=== PATIENT | female | born 1990 | race Caucasian/White ===

== ENCOUNTER 2018-05-27 11:44 | Outpatient (REF) | payer SELFPAY ==
--- NOTE | 2018-05-27 11:15 | PAPFT_PTH ---
PATIENT: Melanie Mcdaniels LOC: [facility] U#:[id number] AGE/SX: 27/F ROOM: RE05/27/[address]: REYMUNDO Lazo : 1990 BED: DIS: 05/27/2018 SPEC #: [id number] RECD: 05/27/18 13:03 STATUS: EVE REChristie #: [id number] VEL: 05/27/18 11:[address]: Crista Dolan DEPT: [facility] Cytology RECD BY: Pushpa Aguilar ENTERED: 05/27/18 13:03 SP TYPE: PAPFT JOVANNI DR: Unknown,Unknown Tissues: 1 - CX/ENDOCX FOR PAP SMEARS Procedures: PAP THIN PREP/UVM Screening Comments: [id number]
== END 2018-05-27 12:04 ==
LOC: LBN 11:44
PROVIDERS: Visit Provider Nurse Practitioner Family
DX: Z12.4 Encounter for screening for malignant neoplasm of cervix (principal)
CPT/HCPCS: 88142

== ENCOUNTER 2019-01-12 15:35 | Emergency (ER) | payer MEDICAID, SELFPAY ==
[2019-01-12 15:42] VITALS: BP 120/75; PULSE 76; RESP 14; TEMP 36.7; O2SAT 100
--- NOTE | 2019-01-12 15:51 | ED.GENADUL_ITS ---
Discharge Plan Disposition Patient Disposition: HOME Condition: Improving Discharge Details Chief Complaint: Urinary Clinical Impression: UTI (urinary tract infection) Primary Care Provider: Unknown,Unknown ED Provider: Berry Gottlieb Home Meds and New Rx's Prescriptions: New phenazopyridine [Pyridium] 100 mg tablet 100 mg PO TID 0 Days RF: 0 cephalexin 500 mg capsule 500 mg PO TID 7 Days Qty: 21 RF: 0 Continued clobetasol 0.05 % ointment 1 applic TP .COMPLEX 42 Days Qty: 15 RF: 2 betamethasone, augmented 0.05 % ointment 1 applic TP QHS Qty: 15 RF: 2 Mirena 20 mcg/24 hr (5 years) intrauterine device 1 insert IY ONCE RF: 0 Discharge Instructions Instructions: Urinary Tract Infection in Women (ED) Additional Instructions: Small, frequent sips of fluids to promote hydration. Tylenol if needed for aches, pains. Return if you develop a fever, back pain, or any other acute concerns. Pyridium as needed. Take antibiotics as prescribed. Medical Decision Making 28-year-old female with urinary frequency and urgency over hours time, similar to previous UTI. No recent change to baseline health. She has indwelling Mirena device. Her vital signs are unremarkable. Urinalysis obtained and consistent with acute cystitis. Discussed use of antibiotics and Pyridium as well as indications for return/follow-up. Patient stable for DC to home. HPI General Mode of arrival: ambulatory . Date/Time Provider Initiated Documentation: 01/12/19 15:45 . Limitations to Documentation: no limitations . Information obtained by: patient . History of Present Illness 28 year old F presents to the emergency department with the chief complaint of Urinary urgency, frequency, burning this morning., described as moderate and similar to prior episodes, Quality is described as constant, and is localized to the pelvis and genitals. Patient reports no radiation. Patient started experiencing this hour(s) and it has been constant. No relieving factors improve symptom(s), No exacerbating factors reported . Patient notes denies fever/chills and nausea/vomiting. Patient did receive the following yolanda tments prior to arrival, none Related Data Home Medications Medication Instructions Recorded Confirmed levonorgestrel 20 mcg/24 hours (5 1 insert IY ONCE 05/27/18 01/12/19 yrs) 52 mg intrauterine device betamethasone, augmented 0.05 % 1 applic TP QHS #15 gm 12/30/18 01/12/19 topical ointment clobetasol 0.05 % topical ointment 1 applic TP .COMPLEX 42 Days #15 gm 12/30/18 01/12/19 cephalexin 500 mg PO TID 7 Days #21 cap 01/12/19 phenazopyridine [Pyridium] 100 mg PO TID 0 Days tab 01/12/19 Previous Rx's Medication Instructions Recorded betamethasone, augmented 0.05 % 1 applic TP QHS #15 gm 12/30/18 topical ointment clobetasol 0.05 % topical ointment 1 applic TP .COMPLEX 42 Days #15 gm 12/30/18 cephalexin 500 mg PO TID 7 Days #21 cap 01/12/19 phenazopyridine [Pyridium] 100 mg PO TID 0 Days tab 01/12/19 Allergies Allergy/AdvReac Type Severity Reaction Status Date / Time No Known Drug Allergies Allergy Verified 01/12/19 15:45 General Stated Complaint: Urinary EILEEN: 4 Review of Systems Review of Systems 6 systems reviewed and otherwise negative [facility] Medical History IUD surveillance (Acute) Personal history of cervical dysplasia (Acute 11/06/12) Abnormal Pap smear of cervix (Resolved) Surgical History section (07/02/13) Family History Brother Hypertension Social History Smoking/Tobacco Use Status: Never Alcohol Intake: never Drug use: Never Substance use type: does not use Do you feel safe at home: Yes Do you feel safe in your relationship?: Yes Female Reproductive History Menstrual control method: progestin IUCD (Irregular spotting with IUD) History History 2 Para Hx # Term Pregnancies 2 Multiple births Hx # Pregnancies Ectopic pregnancies AB induced Hx Number of Living Children AB spontaneous Exam Narrative Exam Narrative: GEN: awake, alert, oriented 3. Pleasant, well groomed, interactive. HEAD: Normocephalic, atraumatic EYES: PERRL, EOMI NECK: Full ROM, no CARLOS, no menigismus CHEST/RESP: Nontender, clear to auscultation bilateral, no wheeze/rhonchi/rales CARDIOVASCULAR: RRR, no murmur, rub adrián. 2+ Rad pulse bilateral ABDOMEN: Soft, minimal suprapubic tenderness, no mass. +Bowel sounds EXT: Full ROM, no edema, no rash Neuro: Grossly normal neurologic exam, conversant, interactive. Psych: Speech fluent, thoughts congruent, affect normal Course Vital Signs Temperature 36.7 C 01/12/19 15:42 Pulse 76 01/12/19 15:42 Respiratory Rate 14 01/12/19 15:42 Blood Pressure 120/75 01/12/19 15:42 Pulse Oximetry 100 01/12/19 15:42 Temperature 36.7 C 01/12/19 15:42 Temperature Source Temporal Artery Scan 01/12/19 15:42 Pulse 76 01/12/19 15:42 Respiratory Rate 14 01/12/19 15:42 Respiratory Effort Non-Labored 01/12/19 15:44 Blood Pressure 120/75 01/12/19 15:42 Blood Pressure Position Sitting 01/12/19 15:42 Pulse Oximetry 100 01/12/19 15:42 Oxygen Delivery Method Room Air 01/12/19 15:42 Oxygen Flow Rate 0 01/12/19 15:42 Pain Level 5 01/12/19 15:45
[2019-01-12 15:58] LABS: Bilirubin Negative (Negative); Blood Moderate (Negative); Clarity Sl Cloudy; Glucose Negative (Negative); Ketones Negative (Negative); Leukocyte Esterase Moderate (Negative); Nitrite Negative (Negative); Urobilinogen 0.2 EU/dL (Up TO 0.2); pH 5.5 (5-8)
[2019-01-12 16:06] LABS: Bacteria Many HPF (Negative); C & S Indicated? Yes; Casts Negative LPF (Negative); Crystals Negative HPF (Negative); Epithelial Cells Few HPF (Negative); Mucus Moderate (Negative); WBC >50 HPF (0-5)
[2019-01-12 16:11] VITALS: BP 120/75; PULSE 76; RESP 14; TEMP 36.7; O2SAT 100
== END 2019-01-12 16:13 | disposition home or self-care (01) ==
PROVIDERS: Emergency Provider Emergency Medicine
DX: N39.0 Urinary tract infection, site not specified (principal); B96.20 Unspecified Escherichia coli [E. coli] as the cause of diseases classified elsewhere; Z96.0 Presence of urogenital implants
CPT/HCPCS: 81025; 87077; 99283; 81003; 81015; 87086; 87186

== ENCOUNTER 2019-06-15 11:26 | Outpatient (REF) | payer MEDICAID, SELFPAY ==
--- NOTE | 2019-06-15 11:00 | PAPFT_PTH ---
PATIENT: Melanie Mcdaniels LOC: N U#:[id number] AGE/SX: 28/F ROOM: RE06/15/[address]: REYMUNDO Lazo : 1990 BED: DIS: 06/15/2019 SPEC #: [id number] RECD: 06/15/19 12:56 STATUS: EVE REChristie #: [id number] VEL: 06/15/19 11:[address]: Critsa Dolan DEPT: [facility] Cytology RECD BY: Mariah Miller ENTERED: 06/15/19 12:56 SP TYPE: PAPFT JOVANNI DR: Unknown,Unknown Tissues: 1 - CX/ENDOCX FOR PAP SMEARS Procedures: PAP THIN PREP/UVM Screening Comments: [id number]
== END 2019-06-15 11:46 ==
LOC: LBN 11:26
PROVIDERS: Visit Provider Nurse Practitioner Family
DX: Z12.4 Encounter for screening for malignant neoplasm of cervix (principal)
CPT/HCPCS: 88142

== ENCOUNTER 2019-07-02 10:58 | Outpatient (REF) | payer MEDICAID, SELFPAY | END 2019-07-02 11:18 | LOC: LBN 10:58 | PROVIDERS: Visit Provider Obstetrics & Gynecology Gynecology | DX: L29.2 Pruritus vulvae (principal) | CPT/HCPCS: 87480; 87510; 87660 ==

== ENCOUNTER 2019-08-13 23:36 | Outpatient (REF) | payer MEDICAID, SELFPAY | END 2019-08-13 23:56 | LOC: LBN 23:36 | PROVIDERS: Visit Provider Nurse Practitioner Family | DX: R30.0 Dysuria (principal) | CPT/HCPCS: 87077; 87086; 87186 ==

== ENCOUNTER 2020-03-20 12:16 | Emergency (ER) | payer MEDICAID, SELFPAY ==
[2020-03-20] VITALS (16 sets, daily range): BP systolic 110–155; BP diastolic 73–108; PULSE 57–167; RESP 12–23; TEMP 36.7; O2SAT 98–100
--- NOTE | 2020-03-20 12:39 | ED.GENADUL_ITS ---
Discharge Plan Disposition Patient Disposition: HOME Condition: Stable Discharge Details Chief Complaint: Allergic Clinical Impression: Allergic reaction Primary Care Provider: Zoila Young ED Provider: Jude Garcia Home Meds and New Rx's Prescriptions: No Action prednisone 20 mg tablet 20 mg PO DAILY 5 Days Qty: 5 RF: 0 Discharge Instructions Instructions: General Allergic Reaction (ED) Additional Instructions: Difficult to know exactly what caused your reaction. You may need to see an residential living assistant for a full allergy testing in order to determine the causative agent. Please watch for new or worsening symptoms and return to the ER for any concerns. At this time I see no clear indication to initiate steroid therapy. I recommend using [id number] Benadryl and Pepcid as directed for the next 48 hours. Please watch for new or worsening symptoms and return to the ER for any concerns. Contact your primary care provider tomorrow for prompt outpatient reevaluation. Discharge Data Discharge Date/Time-TO BE ENTERED AT DEPARTURE: 03/20/20 14:25 Medical Decision Making 29-year-old female presents with a red, itchy rash on her face that began this morning upon waking. No new environmental exposures. Did take a single dose of Benadryl around 8:00 this morning. She appears well, nontoxic. No evidence of angioedema. Discussed our options, we will attempt to avoid any steroid use, obtain IV access and give a full dose of Benadryl and Pepcid. Will observe and reassess I was called into the room shortly after the IV Benadryl was pushed. Patient was feeling flushed, anxious, feeling like her heart was racing. On the monitor heart rate was in the 160s. I immediately ordered an EKG and discussed symptoms with patient. She denies any chest pain or shortness of breath. She reports that one time prior at the dentist office she had a very similar reaction when they injected Novocain into her mouth for a dental procedure. By the time the EKG was obtained just minutes after her reaction, heart rate was already back into the 90s and she was feeling significant improvement. It appears as though she had a reaction to the Benadryl. Patient was observed in the ER for total of over 2 hours. Shortly after the Benadryl reaction, she was back to baseline. Subsequent evaluations revealed that the rash on her chest and neck had resolved completely. Each subsequent evaluation the rash on her face improved. The time she was discharged she reports that her ears felt warm however I did not see any obvious erythema to her ears. Face was without rash or swelling. We discussed our options. She did tolerate the oral Benadryl well this morning, I believe her reaction today was because it was an IV push. We discussed taking 25 mg of p.o. Benadryl and Pepcid [id number] as directed. She can certainly try a full dose, 50 mg of Benadryl but if she has any reaction whatsoever I would recommend going back down to the 25 mg. We discussed in length the difference between adverse reaction, side effect, versus a true allergy. Patient is comfortable continuing oral Benadryl. At this time there is no clear indication for steroids or epinephrine. Medical Records Medical records reviewed: Yes I reviewed the patient's medical records. ECG Data Attestation: I personally reviewed and interpreted this ECG (s) as follows: Interpretation: EKG performed at 1251, reviewed and interpreted with Dr. Kyle. Please see her official report. Sinus rhythm, ventricular rate of 96. No STEMI. HPI General Mode of arrival: ambulatory . Date/Time Provider Initiated Documentation: 03/20/20 12:17 . Limitations to Documentation: no limitations . Information obtained by: patient . HPI Narrative: This is a 29-year-old female with no significant past medical history who reports that she went to bed last night and was asymptomatic, around 6:00 this morning she felt as though her face and neck were warm, red, developing hives. She took a single dose of Benadryl, 25 mg at approximately 8 AM with no relief of her symptoms. She denies any swelling of her mouth, tongue, throat. No difficulty breathing, speaking, swallowing. She reports having had a similar more mild reaction in the past but went away on its own. She is unaware of any new environmental exposures, soaps, laundry detergents, etc. No new foods. Unaware of any insect bites or stings. She denies recent illness or trauma. No recent travel. Denies rash elsewhere on her body. Reports that the rash feels warm, tight, itchy, but not painful. Related Data Home Medications Medication Instructions Recorded Confirmed prednisone 20 mg PO DAILY 5 Days #5 tab 03/20/20 Previous Rx's Medication Instructions Recorded prednisone 20 mg PO DAILY 5 Days #5 tab 03/20/20 Allergies Allergy/AdvReac Type Severity Reaction Status Date / Time No Known Drug Allergies Allergy Verified 03/20/20 18:26 diphenhydramine AdvReac Severe Cardiac Unverified 03/20/20 18:26 [From Benadryl Allergy] Dysrythmia General Stated Complaint: Allergic EILEEN: 3 Review of Systems Constitutional Constitutional: Denies fatigue, Denies fever(s) and Denies weakness Eyes Eyes: Denies itchy eyes ENT Ears, Nose, Mouth, and Throat: Denies lip swelling, Denies neck pain, Denies throat swelling and Denies tongue swelling Cardiovascular Cardiovascular: Denies chest pain and Denies dyspnea Respiratory Respiratory: Denies cough, Denies dyspnea and Denies wheezing Gastrointestinal Gastrointestinal: Denies nausea and Denies vomiting Musculoskeletal Musculoskeletal: Denies neck pain, Denies numbness and Denies tingling Integumentary/Breasts Skin/Breast: Reports rash Neurologic Neurologic: Denies numbness, Denies tingling and Denies weakness Endocrine Endocrine: Denies fatigue Allergic/Immunologic Allergic/Immunologic: Denies itchy eyes, Denies lip swelling, Denies throat swelling, Denies tongue swelling and Denies wheezing [facility] Medical History Abnormal Pap smear of cervix (Resolved) Pt had STANFORD II of ectocervix in 2011, and a diagnosis of STANFORD 1 in 2009. Her Paps have gone from Asc-us -> ASC-H, to LSIL, to HSIL. She is s/p Gardisil x 3 in 2007. 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 will manage expectantly. rpt pap 6mo. 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 Patient is topical betamethasone without relief. 06/16/2019 Terazol Rx (patient did not take) 07/02/2019 equivocal wet mount decreased lactobacilli, + cocci. Rx with p.o. metronidazole Surgical History section (07/02/13) elective repeat c/s. Family History Brother Hypertension Social History Smoking/Tobacco Use Status: Never Alcohol Intake: never Drug use: Never Substance use type: does not use Household members: spouse and children Number of Children: 2 current occupation: [employer] in [employer] Sexually active: Yes Do you feel safe at home: Yes Do you feel safe in your relationship?: Yes Female Reproductive History Menstrual control method: progestin IUCD (Irregular spotting with IUD) History History 2 Para Hx # Term Pregnancies 2 Multiple births Hx # Pregnancies Ectopic pregnancies AB induced Hx Number of Living Children AB spontaneous Exam Const General: cooperative, healthy appearing, comfortable and no acute distress Orientation: alert, awake and oriented x3 HENMT Head: normal to inspection, normocephalic and atraumatic Ears: hearing grossly normal bilaterally General nose exam: external nose normal Mouth: moist mucous membranes Throat: posterior oropharynx normal Other: Slightly macular, erythematous, patchy rash across the face, spares the forehead. It does extend down to the anterior aspect of the neck and upper chest. Minimal warmth. No induration, fluctuance, tenderness, drainage. No obvious swelling. Eyes Conjunctivae: conjunctivae normal Sclera: sclerae normal Neck Neck: full ROM, trachea midline, supple and nontender Resp Effort & Inspection: normal respiratory effort and able to speak in complete sentences Auscultation: clear to auscultation bilaterally Cardio Rate: regular rate Rhythm: regular rhythm GI Inspection: normal to inspection Palpation: soft and nontender Back/Spine/Pelvis Back: No erythema Skin Lesions: no lesions Neuro General: patient alert, patient awake, patient oriented x3, moves all extremities and no focal motor deficits Cranial Nerves: CN's II-XI intact bilaterally Cognition: normal cognition Speech: speech normal Gait: normal gait Motor: muscle tone normal throughout Sensory Exam: no sensory deficits noted Extrem General: normal to inspection, full ROM, capillary refill normal, no pedal edema, no calf tenderness and normal gait Psych Appearance: grossly normal Mental Status: mental status grossly normal Course Vital Signs Vital signs: Vital Signs Temperature 36.7 C 03/20/20 12:21 Pulse 80 03/20/20 12:21 Respiratory Rate 14 03/20/20 12:21 Blood Pressure 155/94 H 03/20/20 12:21 Pulse Oximetry 98 08/09/20 12:21 Temperature 36.7 C 03/20/20 12:21 Temperature Source Tympanic 03/20/20 12:21 Pulse 80 03/20/20 12:21 Respiratory Rate 14 03/20/20 12:21 Respiratory Effort Non-Labored 03/20/20 12:22 Blood Pressure 155/94 H 03/20/20 12:21 Blood Pressure Position Sitting 03/20/20 12:21 Pulse Oximetry 98 03/20/20 12:21 Oxygen Delivery Method Room Air 03/20/20 12:21 Oxygen Flow Rate 0 03/20/20 12:21
[2020-03-20] MEDS: Normal Saline 1,000 ML 1000 ML IV (12:44)
[2020-03-20] MEDS: FAMOTIDINE 20 MG/50 ML BAG 200 MG IVPB (12:45)
[2020-03-20] MEDS: diphenhydrAMINE 50 MG/ML VIAL IVP (12:45)
--- NOTE | 2020-03-20 12:45 | RT.EKG_ITS ---
APPROVED REPORT Exam: Resting ECG Patient Location: E HR:96 bpm ECG Measurements Heart Rate 96 AXIS [place] 132 P 72 QRSd 83 QRS 65 QT 360 T -12 QTc 456 Conclusion Sinus rhythm. Less than 1mm ST depression in V3-5.
== END 2020-03-20 14:25 | disposition home or self-care (01) ==
PROVIDERS: Emergency Provider Physician Assistant; PCP Nurse Practitioner
DX: L50.9 Urticaria, unspecified (principal); R00.0 Tachycardia, unspecified; R23.2 Flushing; T45.0X5A Adverse effect of antiallergic and antiemetic drugs, initial encounter
CPT/HCPCS: 36415; 93005; 96361; 96374; 96375; 99283; 99284; 93010; J1200; J7512

== ENCOUNTER 2020-03-20 18:19 | Emergency (ER) | payer MEDICAID, SELFPAY ==
[2020-03-20 18:23] VITALS: BP 120/78; PULSE 80; RESP 16; TEMP 37; O2SAT 100
--- NOTE | 2020-03-20 18:44 | ED.GENADUL_ITS ---
Discharge Plan Disposition Patient Disposition: HOME Condition: Improving Discharge Details Chief Complaint: Allergic Clinical Impression: Allergic reaction Primary Care Provider: Zoila Young ED Provider: Ashley Littlejohn Home Meds and New Rx's Prescriptions: New prednisone 20 mg tablet 20 mg PO DAILY 5 Days Qty: 5 RF: 0 Discharge Instructions Instructions: General Allergic Reaction (ED) Additional Instructions: Take prednisone daily as instructed. Continue taking Benadryl 1 or 2 tablets every 6-8 hours as needed for hives and itching, also take daily Pepcid as pre viously instructed. Return to the ER for any worsening shortness of breath, facial swelling or any concerns. Follow up with primary care provider in 3-5 days. Return to ED sooner if any worsening or concerns. Increase oral fluids. Referrals: Zoila Young [Primary Care Provider] - Medical Decision Making 29-year-old female presents the ER with increased itching and redness noted to her periorbital space jawline bilateral nose and anterior neck. She was seen here earlier today for the same unknown allergic reaction to unknown substance. She reports leaving around 1400 and going home taking a nap and woke up with the redness and swelling no bit worse did not take Benadryl or any other medications prior to arrival. Will give patient p.o. 25 mg Benadryl here and 60 mg of prednisone prior to discharge. She has no uvula swelling, no stridor no wheezes noted bilaterally to auscultation.. Patient received 60 mg prednisone and 25 mg Benadryl p.o. in department which improved her symptoms. Prescription written for prednisone zone 20 mg a day for the next 7 days. Discussed to continue taking Benadryl and Pepcid as previously instructed. Patient verbalized understanding. The time of this dictation patient was hemodynamically stable, had no increased shortness of breath, wheezes or trouble breathing or swallowing. Erythema had improved and itching has improved. HPI General Mode of arrival: ambulatory . Date/Time Provider Initiated Documentation: 03/20/20 18:24 . Limitations to Documentation: no limitations . Information obtained by: patient . HPI Narrative: 29-year-old female presents the ER with increased itching and redness noted to her periorbital space jawline bilateral nose and anterior neck. She was seen here earlier today for the same unknown allergic reaction to unknown substance. She reports leaving around 1400 and going home taking a nap and woke up with the redness and swelling no bit worse did not take Benadryl or any other medications prior to arrival. Will give patient p.o. 25 mg Benadryl here and 60 mg of prednisone prior to discharge. She has no uvula swelling, no stridor no wheezes noted bilaterally to auscultation.. Related Data Home Medications Medication Instructions Recorded Confirmed prednisone 20 mg PO DAILY 5 Days #5 tab 03/20/20 Previous Rx's Medication Instructions Recorded prednisone 20 mg PO DAILY 5 Days #5 tab 03/20/20 Allergies Allergy/AdvReac Type Severity Reaction Status Date / Time No Known Drug Allergies Allergy Verified 03/20/20 18:26 diphenhydramine AdvReac Severe Cardiac Unverified 03/20/20 18:26 [From Benadryl Allergy] Dysrythmia General Stated Complaint: Allergic EILEEN: 3 Review of Systems Narrative: Constitutional: Negative for weight loss, alert and oriented, well groomed, normal body habitus, appears comfortable. HEENT: Denies trauma, headaches, blurry vision, nasal discharge, sore throat, trouble swallowing. Chest: Denies chest pain, palpitations, irregular rhythm, hypertension. Respiratory: Denies Shortness of breath, cough, hemoptysis. GI: Denies abdominal pain, nausea, vomiting, diarrhea, constipation. : Denies dysuria, hematuria, flank pain, rectal bleeding. Neuro: Denies dizziness, blurry vision, weakness, syncope, headache or facial numbness. Hematologic: Denies easy bruising, intolerance to heat or cold, hair loss. [facility] Medical History Abnormal Pap smear of cervix (Resolved) Pt had STANFORD II of ectocervix in 2011, and a diagnosis of STANFORD 1 in 2009. Her Paps have gone from Asc-us -> ASC-H, to LSIL, to HSIL. She is s/p Gardisil x 3 in 2007. 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 will manage expectantly. rpt pap 6mo. 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 Patient is topical betamethasone without relief. 06/16/2019 Terazol Rx (patient did not take) 07/02/2019 equivocal wet mount decreased lactobacilli, + cocci. Rx with p.o. metronidazole Surgical History section (07/02/13) elective repeat c/s. Family History Brother Hypertension Social History Smoking/Tobacco Use Status: Never Alcohol Intake: never Drug use: Never Substance use type: does not use Household members: spouse and children Number of Children: 2 current occupation: [employer] in [employer] Sexually active: Yes Do you feel safe at home: Yes Do you feel safe in your relationship?: Yes Female Reproductive History Menstrual control method: progestin IUCD (Irregular spotting with IUD) History History 2 Para Hx # Term Pregnancies 2 Multiple births Hx # Pregnancies Ectopic pregnancies AB induced Hx Number of Living Children AB spontaneous Exam Narrative Exam Narrative: Constitutional: Alert and oriented x3. Appears stated age. Normal body habitus. Head: Normocephalic, no trauma. Eyes: Pupils PERRLA, Red reflex noted, EOM's intact. Eyelids symmetrical without lesions, discharge, or swelling. ENT: Bilateral TM's WNL, External ear normal to inspection, no mastoid TTP, swelling, or erythema, Nasal turbinates WNL, no nasal discharge. Normal dentit ion, Posterior pharynx WNL, no exudate. Chest: RRR, Normal S1, S2, distal pulses intact. Resp: Lungs clear to auscultation bilaterally, no wheezes, rales, or rhonchi. Musculoskeletal: Normal gait, 5/5 strength to all four extremities. Skin: No suspicious rashes or lesions. Capillary refill less than 2 sec. Neurologic: Cranial nerves II-XII intact. Alert and oriented x 3. DTR's intact. Hematologic/Lymphatic: No ecchymosis, no lymphadenopathy. Course Vital Signs Vital signs: Vital Signs Temperature 37 C 03/20/20 18:23 Pulse 80 03/20/20 18:23 Respiratory Rate 16 03/20/20 18:23 Blood Pressure 120/78 03/20/20 18:23 Pulse Oximetry 100 03/20/20 18:23 Temperature 37 C 03/20/20 18:23 Temperature Source Skin 03/20/20 18:23 Pulse 80 03/20/20 18:23 Respiratory Rate 16 03/20/20 18:23 Respiratory Effort Non-Labored 03/20/20 18:23 Blood Pressure 120/78 03/20/20 18:23 Blood Pressure Position Sitting 03/20/20 18:23 Pulse Oximetry 100 03/20/20 18:23 Oxygen Delivery Method Room Air 03/20/20 18:23 Oxygen Flow Rate 0 03/20/20 18:23 Pain Level 0 03/20/20 18:23
[2020-03-20] MEDS: diphenhydrAMINE 25 MG CAP PO (18:55)
[2020-03-20] MEDS: predniSONE 20 MG TAB 60 MG PO (18:56)
[2020-03-20 20:20] VITALS: BP 108/71; PULSE 62; RESP 15; TEMP 36.8; O2SAT 99
== END 2020-03-20 20:35 | disposition home or self-care (01) ==
LOC: ER 20:33
PROVIDERS: Emergency Provider Registered Nurse Emergency; PCP Nurse Practitioner
DX: L53.8 Other specified erythematous conditions (principal); L29.8 Other pruritus; T78.40XA Allergy, unspecified, initial encounter
CPT/HCPCS: J7512

== ENCOUNTER 2020-10-17 08:14 | Emergency (ER) | payer MEDICAID, SELFPAY ==
[2020-10-17 08:18] VITALS: BP 138/89; PULSE 92; RESP 18; TEMP 36.4; O2SAT 100
--- NOTE | 2020-10-17 08:26 | ED.GENADUL_ITS ---
Discharge Plan Disposition Patient Disposition: HOME Condition: Stable Discharge Details Clinical Impression: Urticaria Primary Care Provider: Zoila Young ED Provider: Ashley Littlejohn Home Meds and New Rx's Prescriptions: New prednisone 20 mg tablet 20 mg PO DAILY 5 Days Qty: 5 RF: 0 Continued diphenhydramine HCl 50 mg Capsule 50 mg PO Q6H PRNRF: 0 famotidine [Pepcid] 40 mg Tablet 40 mg PO DAILY PRNRF: 0 epinephrine 0.3 mg/0.3 mL Auto-Injector 0.3 mg IM ONCE PRNRF: 0 Discharge Instructions Instructions: Urticaria (ED) Additional Instructions: Follow up with primary care provider in 3-5 days. Return to ED sooner if any worsening or concerns. Increase oral fluids. Take Benadryl 1 or 2 tablets every 6-8 hours as needed for hives or itching, take the prednisone once daily for the next 5 days as prescribed. You may continue taking the Pepcid daily for the next 5 days as well. Please return to the ED immediately as soon as possible for any worsening rash spreading into your eyelid, trouble breathing, throat discomfort, cough or any concerns. Referrals: Zolia Young [Primary Care Provider] - Medical Decision Making 29-year-old female presents to the ED with chief complaint of facial hives and allergic reaction which she reports began yesterday. She has no known source, denies any new medications new facial lotion or anything of that sort. She s tates that she had an episode similar to this approximately 1 year ago and was seen by an it programmer analyst was not able to locate the source of the reaction. She has no complaints of trouble breathing, no throat discomfort, no wheezing no cough. She does have small amount of hives noted in your urticaria to her lower lip, right side of his face down into the right side of her neck and her ears. She denies any nausea vomiting diarrhea no fever. Denies taking any medications prior to arrival this morning. She does state that she is able to take Benadryl by mouth. She does have heart racing with IV Benadryl. At this time 40 mg of Pepcid p.o., 50 mg of Benadryl p.o., and 40 mg of prednisone ordered. 0925: Patient reevaluation, hives and erythema have decreased after medications discussed home care and follow-up with patient who verbalizes understanding. At this time I will prescribe her prednisone for approximately 5 days. She states that she does have [id number] Pepcid at home, will discuss taking Benadryl 1 or 2 tablets every 6-8 hours. Discussed strict return instructions including worsening rash, swelling to her face or any trouble breathing to return to the ED, verbalized understanding. Patient remained hemodynamically stable throughout stay, this text was generated using Support[employer]ee[employer] system, please disregard any oddities of phrase or misspellings. HPI General Mode of arrival: ambulatory . Date/Time Provider Initiated Documentation: 10/17/20 08:16 . Limitations to Documentation: no limitations . Information obtained by: patient . HPI Narrative: 29-year-old female presents to the ED with chief complaint of facial hives and allergic reaction which she reports began yesterday. She has no known source, denies any new medications ne w facial lotion or anything of that sort. She states that she had an episode similar to this approximately 1 year ago and was seen by an it programmer analyst was not able to locate the source of the reaction. She has no complaints of trouble breathing, no throat discomfort, no wheezing no cough. She does have small amount of hives noted in your urticaria to her lower lip, right side of his face down into the right side of her neck and her ears. She denies any nausea vomiting diarrhea no fever. Denies taking any medications prior to arrival this morning. She does state that she is able to take Benadryl by mouth. She does have heart racing with IV Benadryl. Related Data Home Medications Medication Instructions Recorded Confirmed diphenhydramine HCl 50 mg PO Q6H PRN 10/17/20 10/17/20 epinephrine 0.3 mg IM ONCE PRN 10/17/20 10/17/20 famotidine [Pepcid] 40 mg PO DAILY PRN 10/17/20 10/17/20 prednisone 20 mg PO DAILY 5 Days #5 tab 10/17/20 Previous Rx's Medication Instructions Recorded prednisone 20 mg PO DAILY 5 Days #5 tab 10/17/20 Allergies Allergy/AdvReac Type Severity Reaction Status Date / Time No Known Drug Allergies Allergy Verified 03/20/20 18:26 diphenhydramine AdvReac Severe Cardiac Unverified 03/20/20 18:26 [From Benadryl Allergy] Dysrythmia General Stated Complaint: Allergic EILEEN: 3 Review of Systems Narrative: Constitutional: Negative for weight loss, alert and oriented, well groomed, normal body habitus, appears comfortable. HEENT: Denies trauma, headaches, blurry vision, nasal discharge, sore throat, trouble swallowing. Chest: Denies chest pain, palpitations, irregular rhythm, hypertension. Respiratory: Denies Shortness of breath, cough, hemoptysis. GI: Denies abdominal pain, nausea, vomiting, diarrhea, constipation. Skin: Reports rash raised positive pruritus to right side of her face and neck and bilateral earlobes times approximately 24 hours. Neuro: Denies dizziness, blurry vision, weakness, syncope, headache or facial numbness. Hematologic: Denies easy bruising, intolerance to heat or cold, hair loss. [facility] Medical History (Updated 10/17/20 @ 09:32 by Ashley Littlejohn) Abnormal Pap smear of cervix Pt had STANFORD II of ectocervix in 2011, and a diagnosis of STANFORD 1 in 2009. Her Paps have gone from Asc-us -> ASC-H, to LSIL, to HSIL. She is s/p Gardisil x 3 in 2007. 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 will manage expectantly. rpt pap 6mo. IUD surveillance Personal history of cervical dysplasia (11/06/12) Vulvar pruritus 12/2018 onset. Patient is topical betamethasone without relief. 06/16/2019 Terazol Rx (patient did not take) 07/02/2019 equivocal wet mount decreased lactobacilli, + cocci. Rx with p.o. metronidazole Surgical History section (07/02/13) elective repeat c/s. Family History Brother Hypertension Social History Smoking/Tobacco Use Status: Never Smoking risk assessment performed?: Yes Alcohol Intake: never Drug use: Never Substance use type: does not use Household members: spouse and children Number of Children: 2 current occupation: [employer] in [employer] Sexually active: Yes Do you feel safe at home: Yes Do you feel safe in your relationship?: Yes Female Reproductive History Menstrual control method: progestin IUCD (Irregular spotting with IUD) History History 2 Para Hx # Term Pregnancies 2 Multiple births Hx # Pregnancies Ectopic pregnancies AB induced Hx Number of Living Children AB spontaneous Exam Narrative Exam Narrative: Constitutional: Alert and oriented x3. Appears stated age. Normal body habitus. Speaking in full sentences. Voice is clear. Head: Normocephalic, no trauma. Eyes: Pupils PERRLA, Red reflex noted, EOM's intact. Eyelids symmetrical without lesions, discharge, or swelling. ENT: Bilateral TM's WNL, External ear normal to inspection, no mastoid TTP, swelling, or erythema, Nasal turbinates WNL, no nasal discharge. Normal dentition, Posterior pharynx WNL, no exudate. Uvula midline. Chest: RRR, Normal S1, S2, distal pulses intact. Resp: Lungs clear to auscultation bilaterally, no wheezes, rales, or rhonchi. No stridor Musculoskeletal: Normal gait, 5/5 strength to all four extremities. Skin: Capillary refill less than 2 sec.. Raised urticarial type rash noted to the right side of her face and neck with well demarcated borders, small amount of swelling and redness noted to her lower lip and bilateral earlobes. No rash noted at this time to her chest back abdomen or extremities. Neurologic: Cranial nerves II-XII intact. Alert and oriented x 3. DTR's intact. Hematologic/Lymphatic: No ecchymosis, no lymphadenopathy. Course Vital Signs Vital signs: Vital Signs Temperature 36.4 C L 10/17/20 08:18 Pulse 92 H 10/17/20 08:18 Respiratory Rate 18 10/17/20 08:18 Blood Pressure 138/89 10/17/20 08:18 Pulse Oximetry 100 10/17/20 08:18 Temperature 36.4 C L 10/17/20 08:18 Temperature Source Skin 10/17/20 08:18 Pulse 92 H 10/17/20 08:18 Respiratory Rate 18 10/17/20 08:18 Blood Pressure 138/89 10/17/20 08:18 Blood Pressure Position Sitting 10/17/20 08:18 Pulse Oximetry 100 10/17/20 08:18 Oxygen Delivery Method Room Air 10/17/20 08:18 Oxygen Flow Rate 0 10/17/20 08:18 Pain Level 0 10/17/20 08:18
[2020-10-17] MEDS: predniSONE 20 MG TAB 40 MG PO (08:32)
[2020-10-17] MEDS: diphenhydrAMINE 25 MG CAP 50 MG PO (08:32)
[2020-10-17] MEDS: Famotidine 20 MG TAB 40 MG PO (08:32)
[2020-10-17 09:07] VITALS: BP 118/74; PULSE 72; RESP 18; TEMP 37; O2SAT 100
== END 2020-10-17 09:40 | disposition home or self-care (01) ==
PROVIDERS: Emergency Provider Registered Nurse Emergency; PCP Nurse Practitioner
DX: L50.0 Allergic urticaria (principal)
CPT/HCPCS: 99283; J7512

== ENCOUNTER 2022-10-07 13:53 | Emergency (ER) | payer MEDICAID, SELFPAY ==
[2022-10-07 14:08] VITALS: BP 117/87; PULSE 68; RESP 18; TEMP 36.8; O2SAT 100
--- NOTE | 2022-10-07 14:08 | ED.GENADUL_ITS ---
Discharge Plan Disposition Patient Disposition: Home Condition: Improving Discharge Details Clinical Impression: UTI (urinary tract infection) Primary Care Provider: Zoila Young ED Provider: Berry Gottlieb Home Meds and New Rx's Prescriptions: New cephalexin 500 mg capsule 500 mg PO TID 7 Days Qty: 21 0RF Discharge Instructions Instructions: Urinary Tract Infection in Women (ED) Additional Instructions: May continue Azo for relief of symptoms. May use Tylenol as needed for aches or pains. Take antibiotics as prescribed until finished. Every 6 hours today and then 3 times daily starting tomorrow Small, frequent sips of fluids to maintain hydration. Return to the emergency department for any acute concerns. Medical Decision Making This is a 31-year-old female presents with 1 day of urinary urgency, frequency and burning. Similar to previous urinary tract infections. She has otherwise been well and denies other illness. Exam is reassuring. Urinalysis is consistent with acute cystitis. Will place patient on Keflex and she is stable for outpatient management Lab Data Lab results reviewed: Yes I reviewed the patient's lab results. Labs: Laboratory Results - last 24 hr 10/07/22 10/07/22 14:08 14:15 WBC Cancelled RBC Cancelled Hgb Cancelled Hct Cancelled MCV Cancelled MCH Cancelled MCHC Cancelled RDW Cancelled Plt Count Cancelled MPV Cancelled Urine Color Yellow Urine Clarity Cloudy Urine pH 7.0 Ur Specific [place] 1.020 Urine Protein 100 H Urine Ketones Negative Urine Blood Trace-lysed H Urine Nitrite Positive H Urine Bilirubin Negative Urine Urobilinogen 1.0 H Ur Leukocyte Esterase Small H Urine RBC 0-2 Urine WBC 10-20 H Ur Epithelial Cells Many Urine Crystals Negative Urine Bacteria Many Urine Casts Negative Urine Mucus Negative Ur Culture Indicated? No/Sq. Contamination Urine Glucose 100 H HPI General Mode of arrival: ambulatory . Date/Time Provider Initiated Documentation: 10/07/22 13:57 . Limitations to Documentation: no limitations . Information obtained by: patient . History of Present Illness 31 year old F presents to the emergency department with the chief complaint of Urinary urgency and burning for 1 day, and is localized to the abdomen. Patient reports no radiation. Patient started experiencing this hour(s) and it has been intermittent. No relieving factors improve symptom(s), No exacerbating factors reported . Patient notes fever/chills; denies nausea/vomiting. Patient did receive the following treatments prior to arrival, none Related Data Home Medications Medication Instructions Recorded Confirmed cephalexin 500 mg capsule 500 mg PO TID 7 days #21 caps 10/07/22 Previous Rx's Medication Instructions Recorded cephalexin 500 mg capsule 500 mg PO TID 7 days #21 caps 10/07/22 Allergies Allergy/AdvReac Type Severity Reaction Status Date / Time No Known Drug Allergies Allergy Verified 03/20/20 18:26 diphenhydramine AdvReac Severe Cardiac Unverified 10/07/22 14:10 [From Benadryl Allergy] Dysrythmia General EILEEN: 3 Review of Systems Narrative: History of urinary tract infections, otherwise well. 4 systems reviewed PFS All Active Problems (Updated 10/07/22 @ 14:42 by Berry Gottlieb MD) Urticaria (Acute) UTI (urinary tract infection) (Acute) Vulvar pruritus (Chronic) 12/2018 onset. Patient is topical betamethasone without relief. 06/16/2019 Terazol Rx (patient did not take) 07/02/2019 equivocal wet mount decreased lactobacilli, + cocci. Rx with p.o. metronidazole IUD surveillance (Acute) Personal history of cervical dysplasia (Acute 11/06/12) Medical History (Updated 10/07/22 @ 14:42 by Berry Gottlieb MD) Abnormal Pap smear of cervix Pt had STANFORD II of ectocervix in 2011, and a diagnosis of STANFORD 1 in 2009. Her Paps have gone from Asc-us -> ASC-H, to LSIL, to HSIL. She is s/p Gardisil x 3 in 2007. 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 will manage expectantly. rpt pap 6mo. Surgical History section (07/02/13) elective repeat c/s. Family History Brother Hypertension Social History Smoking/Tobacco Use Status: Never Smoking risk assessment performed?: Yes Alcohol Intake: never Drug use: Never Substance use type: does not use Household members: spouse and children Number of Children: 2 current occupation: [employer] in [employer] Sexually active: Yes Do you feel safe at home: Yes Do you feel safe in your relationship?: Yes Female Reproductive History Menstrual control method: progestin IUCD (Irregular spotting with IUD) History History 2 Para Hx # Term Pregnancies 2 Multiple births Hx # Pregnancies Ectopic pregnancies AB induced Hx Number of Living Children AB spontaneous Exam Narrative Exam Narrative: GEN: awake, alert, oriented 3. Pleasant, well groomed, interactive. HEAD: Normocephalic, atraumatic EYES: PERRL, EOMI NECK: Full ROM, no CARLOS, no menigismus CHEST/RESP: Nontender, clear to auscultation bilateral, no wheeze/rhonchi/rales CARDIOVASCULAR: RRR, no murmur, rub adrián. 2+ Rad pulse bilateral ABDOMEN: Soft, no abdominal tenderness, no mass. +Bowel sounds EXT: Full ROM, no edema, no rash Neuro: Grossly normal neurologic exam, conversant, interactive. Psych: Speech fluent, thoughts congruent, affect normal
[2022-10-07 14:37] LABS: Bilirubin Negative (Negative); Blood Trace-lysed (Negative); Clarity Cloudy (Clear); Glucose 100 mg/dL (Negative); Ketones Negative (Negative); Leukocyte Esterase Small (Negative); Nitrite Positive (Negative)
[2022-10-07 14:49] LABS: Bacteria Many HPF (Negative); Casts Negative LPF (Negative); Crystals Negative HPF (Negative); Epithelial Cells Many HPF (Negative); Mucus Negative (Negative); RBC 0-2 HPF (0-2)
[2022-10-07 14:50] LABS: C & S Indicated? No/Sq. Contamination
[2022-10-07] MEDS: Cephalexin 500 MG CAP, 4 CAPS/BTL PO (14:54)
== END 2022-10-07 15:23 | disposition home or self-care (01) ==
PROVIDERS: Emergency Provider Emergency Medicine; PCP Nurse Practitioner
DX: N39.0 Urinary tract infection, site not specified (principal)
CPT/HCPCS: 81025; 85027; 99283; 81003; 81015

== ENCOUNTER 2022-11-02 01:47 | Outpatient (CLI) | payer MEDICAID, SELFPAY ==
--- NOTE | 2022-11-02 | DI.US_ITS ---
Exam(s) US BREAST LT COMPLETE US BREAST RT LIMITED MG MAMMO DIAGNOSTIC BI EXAM: MG MAMMO DIAGNOSTIC BI and U/S breast LT complete and U/S breast RT limited CLINICAL HISTORY: DIAGNOSTIC, LT BREAST MASS,H/O REDUCTION,? FAMILY H/O BREAST CA,N63.0. TECHNIQUE: Craniocaudal and mediolateral oblique Full Field Digital Mammography views with Computer Aided Diagnosis followed by Tomosynthesis and bilat breast ultrasound. COMPARISON: There are no priors for comparison. FINDINGS: Mammography/Tomosynthesis: Masses/Architectural Distortion: There is a partially obscured well-circumscribed nodule in the lower outer quadrant of the left breast measuring 4 mm. There is a partially obscured well-circumscribed 4 mm nodule in the medial aspect of the right breast on the craniocaudad view. No suspicious areas o f architectural distortion are seen. Microcalcifictions: No suspicious pleomorphic-type are seen. Skin Thickening/Nipple Retraction: None. Bilateral breast US: Echotexture: Normal appearance of the glandular tissue. Shadowing: No suspicious foci. Cyst: In the right breast, there is a 0.5 x 0.3 x 0.5 cm solid avascular nodule at the 3 o'clock posi tion 2 cm from the nipple. This would appear to correspond to the mammographic abnormality. This cuenca s benign characteristics and may represent an intraparenchymal lymph node or fibroadenoma. In the le ft breast at the 7 o'clock position 3 cm from the nipple there are 2 hypoechoic nodules. The largest measures 1.4 x 0.5 x 1.3 cm. The smaller measures 0.9 x 0.4 x 1.0 cm. There is no internal blood f low. At the 7 o'clock position 6 cm from the nipple there is a similar appearing lesion measuring 0. 5 x 0.3 x 0.6 cm. At the 12 o'clock position 2 cm from the nipple there is a solid hypoechoic 0.5 x 0.5 x 0.4 cm nodule. These have benign appearing characteristics. Solid lesions: None seen. Ductal dilation: None. IMPRESSION: 1. No definite evidence of malignancy is noted. Multiple bilateral breast nodules. 2. A six-month follow-up bilateral ultrasound is requested to document stability of these lesions. 3. The findings were discussed with the patient on the date of the examination. BI-RADS Category 3 - 6 month - Probably Benign Finding: Recommend follow-up imaging in 6 months Breast Density - Category C - Heterogeneously dense Breast density Category C or D implies that the patient has dense breast tissue. Dense breast tissue can make it harder to find cancer on a mammogram. Dense breast tissue is also associated with an incr eased risk of breast cancer. This information about the result of the mammogram report was provided to the patient to raise their awareness. Use this report when you speak with the patient about their risks for breast cancer, which includes their family history. At that time, you may recommend additional screening tests (Ultrasoun d or MRI) as these tests may add significant information. A negative radiographic report should not delay biopsy if a dominant or clinically suspicious mass is present. Up to ten percent of cancers are not identified on mammography. A negative report may reinforce clinical impression. Adenosis and dense breasts may obscure an underlying neoplasm. False positive reports average 6 to 10%. Patient will receive a letter notifying them of these results.
== END 2022-11-02 02:07 ==
LOC: DI 01:47
PROVIDERS: PCP Nurse Practitioner; Visit Provider Nurse Practitioner Family
DX: N63.21 Unspecified lump in the left breast, upper outer quadrant (principal); Z80.3 Family history of malignant neoplasm of breast; Z98.890 Other specified postprocedural states; N63.12 Unspecified lump in the right breast, upper inner quadrant; N63.24 Unspecified lump in the left breast, lower inner quadrant; N63.23 Unspecified lump in the left breast, lower outer quadrant
CPT/HCPCS: 76642; 77062; 77066; G0279

== ENCOUNTER 2023-02-12 19:23 | Emergency (ER) | payer MEDICAID, SELFPAY ==
[2023-02-12 19:26] VITALS: BP 156/99; PULSE 87; RESP 16; TEMP 36.3; O2SAT 100
--- NOTE | 2023-02-12 21:45 | ED.GENADUL_ITS ---
Discharge Plan Disposition Patient Disposition: Home Condition: Stable Discharge Details Chief Complaint: EarProblem Clinical Impression: Otalgia, right ear Primary Care Provider: Tita Kim ED Provider: Marlo Celis Discharge Instructions Additional Instructions: use the drops 3 times a day for 7 days if not better within a week follow up with your primary care provider if you feel more ill, have severe worsening pain or fevers return to the emergency department Medical Decision Making 32 yo female with no significant pmhx who comes in with cc of right ear discomfort for a week or two described as itching and feels as though there's a bug in the ear. Denies pain, fevers drainage. She arrives stable speaking clearly in no distress. Her left tm and ext aud canal are normal. Right ear ext aud canal mildly swollen with normal tm and no evidence of any foreign body. Suspect mild otitis externa, will place on cortisporin otic drops and advised to f/u with pcp and return precautions given Differential Diagnosis Differential Diagnosis: otitis externa, irritation HPI General Mode of arrival: ambulatory . Date/Time Provider Initiated Documentation: 02/12/23 20:08 . Limitations to Documentation: no limitations . Information obtained by: patient . History of Present Illness 32 year old F presents to the emergency department with the chief complaint of right ear irritation, described as moderate, Patient started experiencing this week(s) (2) and it has been constant. No relieving factors improve symptom(s), No exacerbating factors reported . Patient notes no other symptoms.. Patient did receive the following treatments prior to arrival, none Related Data Allergies Allergy/AdvReac Type Severity Reaction Status Date / Time No Known Drug Allergies Allergy Verified 03/20/20 18:26 diphenhydramine AdvReac Severe Cardiac Unverified 10/07/22 14:10 [From Benadryl Allergy] Dysrythmia General Stated Complaint: EarProblem EILEEN: 4 Review of Systems All systems reviewed & are unremarkable except as noted in HPI and below Constitutional Constitutional: Denies chills, Denies fever(s) and Denies weakness Cardiovascular Cardiovascular: Denies chest pain and Denies dyspnea Respiratory Respiratory: Denies cough and Denies dyspnea Gastrointestinal Gastrointestinal: Denies abdominal pain, Denies nausea and Denies vomiting Genitourinary Genitourinary: Denies dysuria Musculoskeletal Musculoskeletal: Denies joint swelling Integumentary/Breasts Skin/Breast: Denies rash Neurologic Neurologic: Denies weakness PFSH All Active Problems (Updated 02/12/23 @ 21:51 by Marlo Celis MD) Urticaria (Acute) Otalgia, right ear (Acute) Vulvar pruritus (Chronic) 12/2018 onset. Patient is topical betamethasone without relief. 06/16/2019 Terazol Rx (patient did not take) 07/02/2019 equivocal wet mount decreased lactobacilli, + cocci. Rx with p.o. metronidazole IUD surveillance (Acute) Personal history of cervical dysplasia (Acute 11/06/12) Medical History (Updated 02/12/23 @ 21:51 by Marlo Celis MD) Abnormal Pap smear of cervix Pt had STANFORD II of ectocervix in 2011, and a diagnosis of STANFORD 1 in 2009. Her Paps have gone from Asc-us -> ASC-H, to LSIL, to HSIL. She is s/p Gardisil x 3 in 2007. 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 will manage expectantly. rpt pap 6mo. Surgical History section (07/02/13) elective repeat c/s. Family History Brother Hypertension Social History Smoking/Tobacco Use Status: Never Smoking risk assessment performed?: Yes Alcohol Intake: never Drug use: Never Substance use type: does not use Household members: spouse and children Number of Children: 2 current occupation: [employer] in [employer] Sexually active: Yes Do you feel safe at home: Yes Do you feel safe in your relationship?: Yes Female Reproductive History Menstrual control method: progestin IUCD (Irregular spotting with IUD) History History 2 Para Hx # Term Pregnancies 2 Multiple births Hx # Pregnancies Ectopic pregnancies AB induced Hx Number of Living Children AB spontaneous Exam Const General: no acute distress Orientation: alert HENMT Head: no palpable skull fracture Ears: external ears normal and TM's normal bilaterally General nose exam: external nose normal Mouth: moist mucous membranes Eyes General: appearance normal, both eyes and all related structures Neck Neck: normal visual inspection Resp Effort & Inspection: normal respiratory effort and able to speak in complete sentences Cardio Rate: regular rate Skin General skin exam: no rashes or lesions noted Neuro General: patient alert and patient oriented x3 Extrem General: normal to inspection Psych Mental Status: mental status grossly normal Course Vital Signs Vital signs: Vital Signs Temperature 36.3 C L 02/12/23 19:26 Pulse 87 02/12/23 19:26 Respiratory Rate 16 02/12/23 19:26 Blood Pressure 156/99 H 02/12/23 19:26 Pulse Oximetry 100 02/12/23 19:26 Temperature 36.3 C L 02/12/23 19:26 Temperature Source Temporal Artery Scan 02/12/23 19:26 Pulse 87 02/12/23 19:26 Respiratory Rate 16 02/12/23 19:26 Blood Pressure 156/99 H 02/12/23 19:26 Blood Pressure Position Sitting 02/12/23 19:26 Pulse Oximetry 100 02/12/23 19:26 Oxygen Delivery Method Room Air 02/12/23 19:26 Oxygen Flow Rate 0 02/12/23 19:26 Pain Level 0 02/12/23 19:26
== END 2023-02-12 21:52 | disposition home or self-care (01) ==
PROVIDERS: Emergency Provider Emergency Medicine; PCP Nurse Practitioner Family
DX: H92.01 Otalgia, right ear (principal)
CPT/HCPCS: 99282

== ENCOUNTER → 2023-05-07 00:08 | Outpatient (CLI) | payer MEDICAID, SELFPAY ==
--- NOTE | 2023-05-07 | DI.US_ITS ---
Exam(s) US BREAST LT COMPLETE US BREAST RT COMPLETE EXAM: US BREAST RT and left COMPLETE CLINICAL HISTORY: 6 MO F/U, F/U MAMMO, BILAT BREAST NODULES, R92.8 TECHNIQUE: Ultrasound right and left breast performed using standard protocol. COMPARISON: US US BREAST RT LIMITED from 11/02/2022 US US BREAST LT COMPLETE from 11/02/2022 US US BREAST LT COMPLETE from 05/07/2023 FINDINGS: In the right breast, there is a stable well-circumscribed radially oriented hypoechoic 0.6 cm nodule at the 3 o'clock position of the right breast 3 cm from the nipple. No other cystic or solid masses are seen in the right breast. In the left breast, there again seen 3 complex hypoechoic subcutaneous nodules at the 7 o'clock posit ion 6 cm from the nipple. They are unchanged in size or characteristics compared to the prior examin ation. There is also stable radially oriented 0.4 cm hypoechoic nodule at the 12 o'clock position of the left breast 2 cm from the nipple. At the 3 o'clock position of the left breast 3 cm from the ni pple, there is a 0.4 cm well-circumscribed radially oriented hypoechoic nodule present. No suspicious nodules are seen in either breast. IMPRESSION: 1. Stable bilateral breast nodules. 2. No definite evidence for malignancy at this time. 3. Findings were discussed with the patient on the date of the examination. A six-month follow-up bi lateral ultrasound is recommended to document stability of the lesions. BI-RADS Category 2 - Benign Findings DATA REPOSITORY:
== END ==
PROVIDERS: PCP Nurse Practitioner Family; Visit Provider Nurse Practitioner Family
DX: Z12.31 Encounter for screening mammogram for malignant neoplasm of breast (principal); N63.15 Unspecified lump in the right breast, overlapping quadrants
CPT/HCPCS: 76642

== ENCOUNTER 2023-06-04 08:20 | Outpatient (CLI) | payer MEDICAID, SELFPAY | END 2023-06-04 08:21 | disposition home or self-care (01) | PROVIDERS: PCP Nurse Practitioner Family; Visit Provider Nurse Practitioner Family | DX: R00.2 Palpitations (principal) | CPT/HCPCS: 93246 ==

== ENCOUNTER 2023-06-27 07:28 | Outpatient (CLI) | payer MEDICAID, SELFPAY ==
--- NOTE | 2023-06-27 09:35 | W.CARDEVENT ---
Date of service: 06/27/23 Time of Service: 09:36 Cardiac Event Recorder Referring Provider:: Tita Kim Indications:: Palpitations Cardiac Event Note: This is a cardiac event monitor ordered for palpitations. Patient was monitored for 12 days and 19 hours Rhythm throughout was sinus with an average heart rate of 69. Minimum was 40, maximum 162 There were very rare isolated atrial and ventricular ectopic beats There was no atrial fibrillation, no SVT, no high-grade AV block, no pauses greater than 3 seconds Patient's symptoms were reported. The majority of these correlated to sinus rhythm, rarely to a PVC
== END 2023-06-27 07:29 | disposition home or self-care (01) ==
LOC: CARDOPNVT 07:28
PROVIDERS: PCP Nurse Practitioner Family; Visit Provider Internal Medicine Cardiovascular Disease
DX: R00.2 Palpitations (principal)

== ENCOUNTER → 2023-12-24 01:35 | Outpatient (CLI) | payer MEDICAID, SELFPAY ==
--- NOTE | 2023-12-24 | DI.US_ITS ---
Exam(s) US BREAST LT COMPLETE US BREAST RT COMPLETE EXAM: US BREAST BILATERAL COMPLETE CLINICAL HISTORY: N63.0 Breast lumps/mass 3 complex hypoechoic subcutaneous nodules, 7 oclock. TECHNIQUE: Complete ultrasound of BOTH BREASTS was performed including all 4 quadrants, the retroare olar regions, and both axillary regions. COMPARISON: Prior ultrasound examinations were reviewed. Mammogram of 11/02/2022 was reviewed. Luba s patient underwent prior bilateral reduction surgery in 2020. FINDINGS: Left breast ultrasound: The previously hypoechoic described nodular densities are again noted, the largest again noted be at the 6 o'clock position and measuring approximately 1.2 by 0.5 cm and having the appearance of a hemor rhagic cyst, unchanged. Other smaller similar appearing findings are noted at multiple locations thr oughout the left breast which are unchanged from the prior ultrasound. Right breast ultrasound: At 3 o'clock position there is a 4 x 3 millimeter oval benign-appearing nodule again noted, unchanged , and probably hemorrhagic microcyst. At the superficial 6 o'clock position there is a 7 x 2 millimeter wider than taller cysts noted. No new focal right breast findings. Scanning of both axillary regions is negative for significant adenopathy. IMPRESSION: Stable appearance of previously described benign-appearing nodules in this patient who underwent bila teral reduction surgery in 2020. These findings are most probably forms of fat necrosis, possibly developing oil cysts. Appropriate follow-up is repeat breast imaging in 1 year, with earlier imaging if a self detected debbi ast is noted BI-RADS Category 2 - Benign Findings Breast Density - Category C - Heterogeneously dense Breast density Category C or D implies that the patient has dense breast tissue. Dense breast tissue can make it harder to find cancer on a mammogram. Dense breast tissue is also associated with an incr eased risk of breast cancer. This information about the result of the mammogram report was provided to the patient to raise their awareness. Use this report when you speak with the patient about their risks for breast cancer, which includes their family history. At that time, you may recommend additional screening tests (Ultrasoun d or MRI) as these tests may add significant information. A negative radiographic report should not delay biopsy if a dominant or clinically suspicious mass is present. Up to ten percent of cancers are not identified on mammography. A negative report may reinforce clinical impression. Adenosis and dense breasts may obscure an underlying neoplasm. False positive reports average 6 to 10%. Patient will receive a letter notifying them of these results.
== END ==
PROVIDERS: PCP Nurse Practitioner Family; Visit Provider Nurse Practitioner Family
DX: Z12.31 Encounter for screening mammogram for malignant neoplasm of breast (principal); N63.13 Unspecified lump in the right breast, lower outer quadrant
CPT/HCPCS: 76642

== ENCOUNTER 2024-01-13 22:04 | Outpatient (REF) | payer MEDICAID, SELFPAY | END 2024-01-13 22:05 | disposition home or self-care (01) | LOC: LBN 22:04 | PROVIDERS: PCP Nurse Practitioner Family; Visit Provider Nurse Practitioner Family | DX: N39.0 Urinary tract infection, site not specified (principal) | CPT/HCPCS: 87077; 87086; 87186 ==

== ENCOUNTER 2024-02-24 11:41 | Emergency (ER) | payer MEDICAID, SELFPAY ==
[2024-02-24 11:39] VITALS: BP 140/96; PULSE 88; RESP 18; TEMP 37.2; O2SAT 100
--- NOTE | 2024-02-24 12:02 | W.ED.GENAD ---
Discharge Plan Disposition Patient Disposition: Home Condition: Stable Discharge Details Clinical Impression: Insect bite, Allergic reaction Primary Care Provider: Tita Kim ED Provider: Oren Avila Home Meds and New Rx's Prescriptions: No Action meclizine 25 mg tablet 25 mg PO QID PRN aspirin 81 mg tablet,delayed release (DR/EC) 81 mg PO DAILY magnesium 200 mg tablet 400 mg PO DAILY cyanocobalamin (vitamin B-12) [Vitamin B-12] 250 mcg tablet 200 mcg PO BID Discharge Instructions Instructions: Allergic Reaction ED Additional Instructions: can take pepcid and claritin as needed for any itching symptoms topical hydrocortisone or benadryl can be helpful as needed follow up with your PCP HPI General Date/Time Provider Initiated Documentation: 02/24/24 11:54. Limitations to Documentation: no limitations. Information obtained by: patient. HPI Narrative: 33-year-old female without significant past medical history presents for evaluation after an insect sting. She reports an unknown insect stung her on her right foot. She reports afterwards she started to feel chest tightness. She states that she felt like she could not breathe. She denies any rash. She denies any nausea or vomiting or abdominal pain. She does not know what kind of insect stung her, but does not have any known allergies to insects. She reports having a history of urticaria and allergic reactions with an unknown etiology. She states that at 1 point she was provided an EpiPen. She used to this EpiPen today though it was . She reports that she has no symptoms at this time. She was brought in by EMS, no medications were given by them. Related Data Home Medications ?Medication ?Instructions ?Recorded ?Confirmed meclizine 25 mg tablet 25 mg PO QID PRN 06/04/23 02/24/24 aspirin 81 mg tablet,delayed 81 mg PO DAILY 02/24/24 02/24/24 release cyanocobalamin (vitamin B-12) 250 200 mcg PO BID 02/24/24 02/24/24 mcg tablet (Vitamin B-12) magnesium 200 mg tablet 400 mg PO DAILY 02/24/24 02/24/24 Allergies Allergy/AdvReac Type Severity Reaction Status Date / Time No Known Drug Allergies Allergy Other (See Verified 02/24/24 11:45 Comment) diphenhydramine (From AdvReac Severe Cardiac Unverified 02/24/24 11:45 Benadryl Allergy) Dysrythmia General Stated Complaint: Allergic EILEEN: 3 Exam Narrative Exam Narrative: Review of Systems: All systems reviewed & are unremarkable except as noted in HPI and below Well-developed, no acute distress NCAT PERRL, normal conjunctiva RRR no murmur Unlabored respiratory effort clear bilaterally no wheezing Nondistended abdomen soft nontender Extremities w/o deformity, no cyanosis, no edema No rashes or lesions. No wound at the right ankle noted no focal neurologic deficits + Anxious Course Vital Signs Vital signs: Vital Signs Temperature 37.2 C 02/24/24 11:39 Pulse 88 02/24/24 11:39 Respiratory Rate 18 02/24/24 11:39 Blood Pressure 140/96 H 02/24/24 11:39 Pulse Oximetry 100 02/24/24 11:39 Temperature 37.2 C 02/24/24 11:39 Temperature Source Temporal Artery Scan 02/24/24 11:39 Pulse 88 02/24/24 11:39 Respiratory Rate 18 02/24/24 11:39 Respiratory Effort Normal 02/24/24 11:51 Respiratory Pattern Normal 02/24/24 11:51 Blood Pressure 140/96 H 02/24/24 11:39 Blood Pressure Position Sitting 02/24/24 11:39 Pulse Oximetry 100 02/24/24 11:39 Oxygen Delivery Method Room Air 02/24/24 11:39 Oxygen Flow Rate 0 02/24/24 11:39 Pain Level 0 02/24/24 11:39 Medical Decision Making Emergent evaluation of after insect bite and EpiPen use. Patient reported chest tightness and shortness of breath however no other symptoms concerning for anaphylaxis were present. The patient has a normal examination at this time. They have the insect with them and does not appear to be a bee or wasp of any kind. She has no urticaria or hives, no abdominal pain. I do not feel that any additional epinephrine is indicated. Will give a dose of Pepcid and monitor after the EpiPen use. Patient observed in the emergency department and symptoms completely resolved. As I do not feel that this is anaphylaxis, I do not feel she needs another EpiPen for home. Recommended Claritin and Pepcid as needed for any allergic reactions. Return for concerns advised. Discharged in good condition Quality:[facility] Health Related Social Needs: No Data to Display PFSH All Active Problems (Updated 02/24/24 @ 13:29 by Oren Avila MD) Allergic reaction (Acute) Insect bite (Acute) Urticaria (Acute) Vulvar pruritus (Chronic) 12/2018 onset. Patient is topical betamethasone without relief. 06/16/2019 Terazol Rx (patient did not take) 07/02/2019 equivocal wet mount decreased lactobacilli, + cocci. Rx with p.o. metronidazole IUD surveillance (Acute) Personal history of cervical dysplasia (Acute 11/06/12) Medical History Abnormal Pap smear of vagina Urticaria, idiopathic Skin lesions, generalized Jaw pain Breast lump Vertigo Macromastia Migraine with aura Palpitations Abnormal Pap smear of cervix Pt had STANFORD II of ectocervix in 2011, and a diagnosis of STANFORD 1 in 2009. Her Paps have gone from Asc-us -> ASC-H, to LSIL, to HSIL. She is s/p Gardisil x 3 in 2007. 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 will manage expectantly. rpt pap 6mo. Surgical History section (07/02/13) elective repeat c/s. Family History Brother Hypertension Social History Smoking/Tobacco Use Status: Former Tobacco Use Smoking risk assessment performed?: Yes Alcohol Intake: never Drug use: Never Substance use type: does not use Household members: spouse and children Number of Children: 2 current occupation: [employer] in [employer] Sexually active: Yes Do you feel safe at home: Yes Do you feel safe in your relationship?: Yes Female Reproductive History Menstrual control method: progestin IUCD (Irregular spotting with IUD) History History 2 Para Hx # Term Pregnancies 2 Multiple births Hx # Pregnancies Ectopic pregnancies AB induced Hx Number of Living Children AB spontaneous
[2024-02-24 13:04] VITALS: BP 128/86; PULSE 67; RESP 16; TEMP 36.8; O2SAT 99
[2024-02-24 13:23] VITALS: BP 133/82; PULSE 76; RESP 18; O2SAT 98
== END 2024-02-24 13:35 | disposition home or self-care (01) ==
PROVIDERS: Emergency Provider Emergency Medicine; PCP Nurse Practitioner Family
DX: T63.441A Toxic effect of venom of bees, accidental (unintentional), initial encounter (principal); R06.02 Shortness of breath; Z79.82 Long term (current) use of aspirin; Z87.891 Personal history of nicotine dependence
CPT/HCPCS: 99283

== ENCOUNTER 2024-06-11 03:04 | Outpatient (CLI) | payer MEDICAID, SELFPAY ==
[2024-06-11 09:10] LABS: Abs Immature Grans 0.01 10^3/uL (0.0-0.06); Absolute Basophil Count 0.04 10^3/uL (0.0-0.2); Absolute Eosinophil Count 0.06 10^3/uL (0.0-0.7); Absolute Lymphocyte Count 2.12 10^3/uL (1.2-3.4); Absolute Monocyte Count 0.38 10^3/uL (0.1-0.8); Basophils % 0.8 %; Eosinophils % 1.2 %; HGB 11.5 g/dL (11.2-15.7); Immature Grans % 0.2 %; Lymphocytes % 42.3 %; MCH 26.6 pg (27.0-33.0); MCHC 31.9 % (32.0-36.0); MCV 83 fL (80-95); MPV 11.1 fL (8.0-11.0); Monocytes % 7.6 %; Neutrophils % 47.9 %; Platelet Count 228 10^3/uL (130-400); RBC 4.33 10^6/uL (3.93-5.22); RDW 14.2 % (11.7-14.6); RDW-SD 42.4 fL; WBC 5.01 10^3/uL (4.4-10.8)
[2024-06-11 10:12] LABS: ALT 13 U/L (14-59); AST 19 U/L (15-37); Albumin 3.7 g/dL (3.4-5.0); Alkaline Phosphatase 85 U/L (46-116); Anion Gap 7.9 mmol/L (3-11); BUN 11 mg/dL (7-18); Bilirubin, Total 0.46 mg/dL (0.2-1.0); CO2 28.1 mmol/L (21.0-32.0); CREATININE 0.9 mg/dL (0.55-1.02); Calcium 9.1 mg/dL (8.5-10.1); Chloride 108 mmol/L (98-107); Estimated GFR 86.57 (mL/min/1.73m2); Glucose 101 mg/dL (74-106); Potassium 4.3 mmol/L (3.5-5.1); Sodium 144 mmol/L (136-145); TSH (W/Ref FT4) 0.97 uIU/mL (0.36-3.74); Total Protein 7.5 g/dL (6.4-8.2)
== END 2024-06-11 03:05 | disposition home or self-care (01) ==
LOC: LBO 03:04
PROVIDERS: PCP Nurse Practitioner Family; Visit Provider Nurse Practitioner Family
DX: F41.9 Anxiety disorder, unspecified (principal)
CPT/HCPCS: 36415; 80053; 84443; 85025

== ENCOUNTER 2024-07-07 15:06 | Outpatient (CLI) | payer MEDICAID, SELFPAY ==
--- NOTE | 2024-07-07 14:00 | DI.RAD_ITS ---
Exam(s) XR CERVICAL SP COMP W FLEX/EXT EXAM: XR CERVICAL SP COMP W FLEX/EXT CLINICAL HISTORY: neck pain M54.2 CERVICALGIA. TECHNIQUE: 2D digital imaging was performed. COMPARISON: No exams were available for comparison FINDINGS: Nine images No evidence of fracture, listhesis, nor offset of the spinal laminar line. All the disc spaces exhib it normal height and facet joints appear unremarkable. There are no cervical ribs. Oblique images r eveal widely patent neural foramina bilaterally with no evidence of Luschka joint osteophytes. Flexi on and extension views reveal no evidence of listhesis. IMPRESSION: No significant radiograph findings in the cervical spine DATA REPOSITORY: RADIATION DOSE DELIVERED:
== END 2024-07-07 15:26 ==
LOC: DI 15:07
PROVIDERS: PCP Nurse Practitioner Family; Visit Provider Nurse Practitioner Family
DX: M54.2 Cervicalgia (principal)
CPT/HCPCS: 72052

== ENCOUNTER 2025-03-17 18:59 | Outpatient (CLI) | payer MEDICAID, SELFPAY ==
[2025-03-19 09:10] LABS: Lyme Ab w Rflx to Lyme Confirm Negative (Negative)
[2025-03-21 19:08] LABS: B. miyamotoi PCR Negative (Negative); Babesia divergens/MO-1 Negative (Negative); Ehrlichia muris eauclairensis Negative (Negative)
== END 2025-03-17 19:00 | disposition home or self-care (01) ==
LOC: LBO 18:59
PROVIDERS: PCP Nurse Practitioner Family; Visit Provider Family Medicine
DX: M25.50 Pain in unspecified joint (principal)
CPT/HCPCS: 36415; 87798; 86431; 86618

== ENCOUNTER 2025-03-26 13:51 | Outpatient (CLI) | payer MEDICAID, SELFPAY ==
[2025-03-26 16:14] LABS: ESR 7 mm/hr (0-20)
[2025-03-26 16:16] LABS: Abs Immature Grans 0.01 10^3/uL (0.0-0.06); HCT 34.6 % (36.0-46.0); HGB 10.8 g/dL (11.2-15.7); Immature Grans % 0.2 %; MCH 24.4 pg (27.0-33.0); MCHC 31.2 % (32.0-36.0); MCV 78 fL (80-95); MPV 10.8 fL (8.0-11.0); Platelet Count 261 10^3/uL (130-400); RBC 4.42 10^6/uL (3.93-5.22); RDW 14.9 % (11.7-14.6); RDW-SD 42.1 fL; WBC 5.51 10^3/uL (4.4-10.8)
[2025-03-26 17:00] LABS: ALT 27 U/L (14-59); AST 29 U/L (15-37); Albumin 4.0 g/dL (3.4-5.0); Alkaline Phosphatase 87 U/L (46-116); Bilirubin, Direct 0.1 mg/dL (0.0-0.2); Bilirubin, Total 0.6 mg/dL (0.2-1.0); Estimated GFR 86.03 (mL/min/1.73m2); TSH (W/Ref FT4) 0.84 uIU/mL (0.36-3.74); Total Protein 7.7 g/dL (6.4-8.2)
[2025-03-27 15:01] LABS: Lab Add On Test DONE
[2025-03-27 15:19] LABS: Iron 44 ug/dL (50-170); Total Iron Binding Capacity 338 ug/dL (250-450); Transferrin Sat 13 % (15-50)
[2025-03-27 15:32] LABS: Ferritin 16 ng/mL (8-252)
== END 2025-03-26 13:52 | disposition home or self-care (01) ==
LOC: LBO 04-08 13:52
PROVIDERS: PCP Nurse Practitioner Family; Visit Provider Nurse Practitioner Family
DX: R79.89 Other specified abnormal findings of blood chemistry
CPT/HCPCS: 36415; 80076; 85652; 86200; 82565; 82728; 83540; 83550; 84443; 85025; 86038

== ENCOUNTER 2025-05-13 04:23 | Outpatient (CLI) | payer MEDICAID, SELFPAY ==
--- NOTE | 2025-05-13 10:20 | DI.RAD_ITS ---
Exam(s) XR HAND RT COMPLETE EXAM: XR HAND RT COMPLETE CLINICAL HISTORY: pain,POLYARTHRALGIA,M25.50. TECHNIQUE: 2D digital imaging was performed. Three views. COMPARISON: CR LEFT HAND COMPLETE from 11/07/2014 FINDINGS: BONES: No acute fracture is present. No bony destructive lesion is seen. The bones are normally mineralized. JOINTS: No dislocation present. No periarticular erosions. SOFT TISSUE: Normal. IMPRESSION: Unremarkable radiographs of the right hand. DATA REPOSITORY: RADIATION DOSE DELIVERED:
--- NOTE | 2025-05-13 10:20 | DI.RAD_ITS ---
Exam(s) XR FOOT LT COMPLETE EXAM: XR FOOT LT COMPLETE CLINICAL HISTORY: pain,POLYARTHRALGIA,M25.50. TECHNIQUE: 2D digital imaging was performed. Three views. COMPARISON: No exams were available for comparison FINDINGS: BONES: No acute fracture is present. No bony destructive lesion is seen. Tiny heel spurs. JOINTS: No dislocation present. There are no significant degenerative changes. Plantar arch is maintained. SOFT TISSUE: Normal. IMPRESSION: Tiny heel spurs. DATA REPOSITORY: RADIATION DOSE DELIVERED:
--- NOTE | 2025-05-13 10:20 | DI.RAD_ITS ---
Exam(s) XR HAND LT COMPLETE EXAM: XR HAND LT COMPLETE CLINICAL HISTORY: pain,POLYARTHRALGIA,M25.50. TECHNIQUE: 2D digital imaging was performed. Three views. COMPARISON: CR XR HAND RT COMPLETE from 05/13/2025 FINDINGS: BONES: No acute fracture is present. No bony destructive lesion is seen. The bones are normally mineralized. JOINTS: No dislocation present. No joint space narrowing or periarticular erosions. SOFT TISSUE: Normal. IMPRESSION: Unremarkable radiographs of the left hand. DATA REPOSITORY: RADIATION DOSE DELIVERED:
--- NOTE | 2025-05-13 10:21 | DI.RAD_ITS ---
Exam(s) XR FOOT RT COMPLETE EXAM: XR FOOT RT COMPLETE CLINICAL HISTORY: pain,POLYARTHRALGIA,M54.50. TECHNIQUE: 2D digital imaging was performed. Three views. COMPARISON: No exams were available for comparison FINDINGS: BONES: No acute fracture is present. No bony destructive lesion is seen. Tiny enthesophyte at the Achilles insertion. The bone mineral density is normal. JOINTS: No dislocation present. Joint spaces are maintained. No periarticular erosions. SOFT TISSUE: Normal. IMPRESSION: Unremarkable radiographs of the right foot. DATA REPOSITORY: RADIATION DOSE DELIVERED:
== END 2025-05-13 04:43 ==
LOC: DI 04:23
PROVIDERS: PCP Nurse Practitioner Family; Visit Provider Nurse Practitioner Family
DX: M25.571 Pain in right ankle and joints of right foot (principal); M25.572 Pain in left ankle and joints of left foot; M25.541 Pain in joints of right hand; M25.542 Pain in joints of left hand
CPT/HCPCS: 73130; 73630

== ENCOUNTER 2025-06-21 13:59 | Emergency (ER) | payer MEDICAID, SELFPAY ==
--- NOTE | 2025-06-21 14:15 | RT.EKG_ITS ---
APPROVED REPORT Exam: Resting ECG Reason for Exam: dizzy Patient Location: E HR:60 bpm ECG Measurements Heart Rate 60 AXIS MS 130 P 69 QRSd 80 QRS 73 QT 430 T 54 QTc 430 Conclusion Sinus rhythm, rate 60 No interval abnormalities No STEMI Q wave lead aVL, inverted T wave lead V1, unchanged from prior Compared to prior, <1mm ST depression in V3-V6 has resolved
[2025-06-21 14:17] VITALS: BP 134/84; PULSE 62; RESP 14; TEMP 36.4; O2SAT 99
[2025-06-21 14:24] VITALS: BP 134/84; PULSE 62; RESP 14; TEMP 36.4; O2SAT 99
--- NOTE | 2025-06-21 14:40 | W.ED.GENAD ---
Discharge Plan Disposition Patient Disposition: Home Condition: Stable Discharge Details Clinical Impression: Near syncope Primary Care Provider: Lottie Estrada ED Provider: Aurora Motley Home Meds and New Rx's Prescriptions: No Action omeprazole 20 mg capsule,delayed release(DR/EC) 20 mg PO DAILY Qty: 60 0RF riboflavin (vitamin B2) 100 mg capsule 200 mg PO BID Zyrtec 10 mg capsule 10 mg PO DAILY PRN meclizine 25 mg tablet 25 mg PO QID PRN escitalopram oxalate 10 mg tablet 10 mg PO DAILY Qty: 90 2RF aspirin 81 mg tablet,delayed release (DR/EC) 81 mg PO DAILY magnesium 200 mg tablet 400 mg PO DAILY Discharge Instructions Instructions: Near Fainting (DC) Additional Instructions: You were seen in the emergency department today for evaluation after a near fainting episode. In our department you had a full physical examination performed, and had laboratory studies that were quite reassuring. Your red blood cell count, or hemoglobin, is stable today and not significantly decreased due to your menses. Your electrolytes are reassuring and your kidneys are functioning as expected. I am most suspicious for a condition known as orthostasis, or a low blood pressure associated with position changes. The treatment for this is good hydration, I have provided you with a liter of IV fluids here in the hospital and have provided you with a few doses of Zofran to help you maintain your hydration over the next day or so. I do recommend that you try electrolyte solutions in addition to water, and you can try wearing compression stockings to work, as this can reduce the symptoms associated with prolonged standing. Please follow-up with your primary care provider in the next few days to discuss this visit and any symptoms that change, worsen, or persist. Thank you for allowing us to be part of your care. Stand Alone Forms: Portal Information HPI General Mode of arrival: ambulatory. Date/Time Provider Initiated Documentation: 06/21/25 14:23. Limitations to Documentation: no limitations. Information obtained by: patient and old records reviewed. HPI Narrative: This is a 34-year-old female patient with a past medical history significant for iron deficiency anemia due to heavy menses, presenting for evaluation of a near syncopal episode. The patient reports that she was at work today, owns a hair salon, and began to feel lightheaded, with tunnel vision, sweating and nausea. She went into her vehicle to go to the pharmacy to sisal picker her prescription, and states that when she tried to get up from her vehicle she had a near fainting episode, where her vision went black. She was seated at the time and did not sustain trauma or injury. She does not believe she fully lost consciousness, sat in her car for some time to recover. This occurred around 11 AM. She states that she has had episodes of almost fainting like this before. This episode was not associated with any chest pain or palpitations, denies headache, numbness, tingling, or weakness. Did just start her menstrual cycle 2 days ago. Has had a tubal ligation for prevention. Related Data Home Medications Medication Instructions Recorded Confirmed meclizine 25 mg tablet 25 mg PO QID PRN 06/04/23 06/21/25 aspirin 81 mg tablet,delayed 81 mg PO DAILY 02/24/24 06/21/25 release magnesium 200 mg tablet 400 mg PO DAILY 02/24/24 06/21/25 omeprazole 20 mg capsule,delayed 20 mg PO DAILY #60 caps 06/23/24 06/21/25 release riboflavin (vitamin B2) 100 mg 200 mg PO BID 12/29/24 06/21/25 capsule cetirizine 10 mg capsule (Zyrtec) 10 mg PO DAILY PRN 05/04/25 06/21/25 escitalopram oxalate 10 mg tablet 10 mg PO DAILY #90 tabs 06/01/25 06/21/25 Previous Rx's Medication Instructions Recorded omeprazole 20 mg capsule,delayed 20 mg PO DAILY #60 caps 06/23/24 release escitalopram oxalate 10 mg tablet 10 mg PO DAILY #90 tabs 06/01/25 Allergies Allergy/AdvReac Type Severity Reaction Status Date / Time sertraline Allergy Intermediate Dizziness/L Verified 06/21/25 14:24 ighthead bee venom protein (honey bee) Allergy Unknown Unknown Verified 06/21/25 14:24 diphenhydramine (From AdvReac Severe Cardiac Unverified 06/21/25 14:24 Benadryl Allergy) Dysrythmia General Stated Complaint: Nausea/Vomit/Diar EILEEN: 3 Exam Narrative Exam Narrative: Gen: Awake and alert, in no apparent distress HEENT: Non-icteric sclera, PERRL Neck: Supple Lungs: No apparent respiratory distress, normal respiratory effort. Lung sounds clear and equal bilaterally CV: Appears well perfused, heart with regular rate and rhythm, strong and symmetrical distal pulses, no murmurs auscultated Abdomen: Non-distended, soft, nontender MSK: Moves 4 extremities without apparent limitation in ROM. No peripheral edema, no unilateral calf swelling or tenderness Skin: Visualized skin without rashes, cyanosis. Neuro: Normal Gait, no obvious focal deficits or facial asymmetry. Speaks in full, clear sentences. Psych: Appropriate for situation. Course Vital Signs Vital signs: Vital Signs Temperature 36.4 C L 06/21/25 14:17 Pulse 62 06/21/25 14:17 Respiratory Rate 14 06/21/25 14:17 Blood Pressure 134/84 06/21/25 14:17 Pulse Oximetry 99 06/21/25 14:17 Temperature 36.4 C L 06/21/25 14:24 Temperature Source Oral 06/21/25 14:24 Pulse 62 06/21/25 14:24 Respiratory Rate 14 06/21/25 14:24 Blood Pressure 134/84 06/21/25 14:24 Blood Pressure Position Sitting 06/21/25 14:24 Pulse Oximetry 99 06/21/25 14:24 Oxygen Delivery Method Room Air 06/21/25 14:24 Oxygen Flow Rate 0 06/21/25 14:17 Pain Level 0 06/21/25 14:17 Medical Decision Making This is a 34-year-old female patient presenting for evaluation of a near syncopal episode. My differential includes but is not limited to vasovagal syndrome, orthostasis, anemia, dehydration, metabolic and electrolyte derangement, kidney injury. The patient is chest pain-free and I have a lower concern for ACS, no evidence for arrhythmia on EKG or in history. The patient is neuro intact and I have a low concern for intracranial hemorrhage, stroke, or seizure. No injury sustained as a result of this event. We obtained an EKG which I reviewed, which shows a sinus rhythm without evidence of ischemia, interval abnormality, or ectopy. No significant changes when compared to prior. We will provide the patient with a liter of IV fluids and Zofran for symptomatic management of her nausea. We will obtain labs to include CBC, CMP, magnesium, and urinalysis. - I independently interpreted the laboratory studies, which show no significant leukocytosis, anemia, or thrombocytopenia. She does have a very modest microcytic change to her RBCs, consistent with her diagnosis of iron deficiency. The chemistry panel is without evidence of electrolyte abnormality, kidney dysfunction, or liver injury. Urinalysis with large blood but no sign of infection or ketones, consistent with her current menstrual cycle. In the absence of urinary symptoms I do not feel that this requires further workup at this time. On reevaluation, patient reports some improvement in her symptoms. I am most concerned for orthostatic near syncope, and had a discussion with the patient regarding good hydration, electrolyte-containing fluids, and the use of compression stockings when standing at work for long periods of time. A short course of Zofran was provided to her to help her maintain her hydration over the next 24 to 48 hours. At this time, the patient has had a full medical evaluation and is safe for discharge to home. They are hemodynamically stable, ambulatory, and tolerating PO. They are understanding of the follow-up plan and return precautions. They left our facility without incident. 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 Patient is topical betamethasone without relief. 06/16/2019 Terazol Rx (patient did not take) 07/02/2019 equivocal wet mount decreased lactobacilli, + cocci. Rx with p.o. 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 Her Paps have gone from Asc-us -> ASC-H, to LSIL, to HSIL. She is s/p Gardisil x 3 in 2007. 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 will manage expectantly. rpt pap 6mo. Surgical History History of colposcopy Hx of bilateral breast reduction surgery Hx of wisdom tooth extraction section (07/02/13) elective repeat c/s. Family History Brother Hypertension Mother Hypertension Maternal Uncle Brain cancer Heart disease Paternal Aunt Multiple sclerosis Brain cancer Maternal Grandfather Lymphoma Maternal Grandmother Stroke Social History Smoking/Tobacco Use Status: Never Second Hand Exposure: No Smoking risk assessment performed?: Yes Alcohol Intake: current Alcohol Intake frequency: holidays/special occasions only Drug use: Never Substance use type: does not use Adopted: No Caregiver/Support person: No Foster care: No Household members: spouse, family and children Housing: house Number of Children: 3 Communication Needs: None Education Level: vocational Do you need help understanding health information?: Never current occupation: Hairstylist/ [employer] Pets and animals: Yes (1 Cat, 3 Dogs) Pets and animals: cat(s) and dog(s) Sexually active: Yes Do you think of yourself as: straight/heterosexual Current gender identity: female What is your relationship status?: How often do you talk on the phone with friends or family?: three or more times per week How often do you get together with friends or relatives?: once per week Do you belong to any clubs or organized social groups?: no Panel score (0-1 are the most socially isolated patients): 2 Duration: 15-30 minutes/day Frequency: 1-2 times per week Yamile/Rastafari: None Special yamile needs: No Seatbelt use: always Helmet use: Yes Drive intox or ride w/intox pack train driver: No Do you feel safe at home: Yes Do you feel safe in your relationship?: Yes Female Reproductive History Menstrual control method: progestin IUCD (Irregular spotting with IUD) History History 2 Para Hx # Term Pregnancies 2 Multiple births Hx # Pregnancies Ectopic pregnancies AB induced Hx Number of Living Children AB spontaneous
[2025-06-21] MEDS: Ondansetron 4 MG/2 ML VIAL IVP (14:56)
[2025-06-21] MEDS: Lactated Ringers 1,000 ML 1000 ML IV (14:56)
[2025-06-21 15:00] LABS: Abs Immature Grans 0.02 10^3/uL (0.0-0.06); HCT 35.3 % (36.0-46.0); HGB 11.3 g/dL (11.2-15.7); Immature Grans % 0.3 %; MCH 25.1 pg (27.0-33.0); MCHC 32.0 % (32.0-36.0); MCV 78 fL (80-95); MPV 10.6 fL (8.0-11.0); Platelet Count 240 10^3/uL (130-400); RBC 4.50 10^6/uL (3.93-5.22); RDW 15.9 % (11.7-14.6); RDW-SD 45.6 fL; WBC 6.03 10^3/uL (4.4-10.8)
[2025-06-21 15:01] LABS: Glucose Negative (Negative)
[2025-06-21 15:08] LABS: C & S Indicated? No; RBC >50 HPF (0-2); WBC Negative HPF (0-5)
[2025-06-21 15:19] LABS: ALT 41 U/L (14-59); AST 40 U/L (15-37); Albumin 3.9 g/dL (3.4-5.0); Alkaline Phosphatase 84 U/L (46-116); Anion Gap 10.2 mmol/L (3-11); BUN 15 mg/dL (7-18); Bilirubin, Total 0.3 mg/dL (0.2-1.0); CO2 25.8 mmol/L (21.0-32.0); Calcium 8.4 mg/dL (8.5-10.1); Chloride 102 mmol/L (98-107); Glucose 90 mg/dL (74-106); Magnesium 1.9 mg/dL (1.8-2.4); Potassium 3.9 mmol/L (3.5-5.1); Sodium 138 mmol/L (136-145); Total Protein 7.9 g/dL (6.4-8.2)
[2025-06-21 16:03] VITALS: BP 124/66; PULSE 86; RESP 18; O2SAT 99
[2025-06-21] MEDS: Ondansetron O.D.T. 4 MG TABEF, 3 TABS/BTL PO (16:03)
[2025-06-21 20:48] LABS: Lab Add On Test DONE
[2025-06-21 21:18] LABS: Iron 23 ug/dL (50-170); Total Iron Binding Capacity 357 ug/dL (250-450); Transferrin Sat 6 % (15-50)
[2025-06-21 21:31] LABS: Ferritin 8 ng/mL (8-252)
== END 2025-06-21 15:56 | disposition home or self-care (01) ==
PROVIDERS: Emergency Provider Emergency Medicine; PCP Nurse Practitioner Family
DX: R55 Syncope and collapse (principal)
CPT/HCPCS: 80053; 93005; 96360; 99284; 81003; 81015; 82728; 83540; 83550; 83735; 85025; 93010; 99283; J2405